=== PATIENT | female | born 1960 | race Caucasian/White ===

== ENCOUNTER → 2021-03-24 | Outpatient (CLI) | payer OTHER ==
[2021-03-24 15:27] LABS: Appearance,Urine Clear (Clear); Bilirubin,Urine Negative (Negative); Blood,Urine Negative (Negative); Color,Urine Light Yellow; Glucose,Urine (UA) Negative (Negative); Ketones,Urine Negative (Negative); Leukocyte Esterase,Urine Negative (Negative); Nitrite,Urine Negative (Negative); Protein,Urine Negative (Negative); Specific Gravity,Urine 1.005 (1.001-1.035); Urobilinogen,Urine <2.0 mg/dL (<2.0)
[2021-03-24 15:34] LABS: ALT 20 U/L (4-34); AST 28 U/L (14-36); African American GFR (CKD) >90 (>60 ml/min/1.73 sqM); Albumin 4.9 g/dL (3.5-5.0); Alkaline Phosphatase 124 U/L (38-126); Anion Gap 10 mmol/L; Blood Urea Nitrogen 13 mg/dL (7-17); Carbon Dioxide 25 mmol/L (22-30); Chloride 105 mmol/L (98-107); Glucose 83 mg/dL (74-99); INR 0.9 (<1.2); Non-African American GFR(CKD) >90 (>60 ml/min/1.73 sqM); Potassium 4.1 mmol/L (3.5-5.1); Prothrombin Time 9.9 sec (9.0-12.0); Sodium 140 mmol/L (137-145); Total Bilirubin 0.6 mg/dL (0.2-1.3)
[2021-03-24 15:36] LABS: HCT 39.7 % (34.0-46.0); MCH 29.9 pg (25.0-35.0); MCHC 32.8 g/dL (31.0-37.0); MCV 91.2 fL (80.0-100.0); Mean Platelet Volume 7.7; Platelet Count 258 k/uL (150-450); RBC 4.35 m/uL (3.80-5.40); RDW 12.9 % (11.5-15.5); WBC 7.5 k/uL (3.8-10.6)
== END | disposition home or self-care (01) ==
LOC: LABPAT 13:44
PROVIDERS: ATTEND Orthopaedic Surgery
DX: Z01.812 Encounter for preprocedural laboratory examination (principal)
CPT/HCPCS: 36415; 80053; 81003; 85027; 85610; 85730; 87070

== ENCOUNTER 2021-03-29 09:48 | Day surgery (SDC) | payer OTHER ==
[2021-03-24 13:47] VITALS: BMI 44.2
[~2021-03-29 09:48] MED LIST: ACETAMINOPHEN TAB 500 MG TAB PO PRN; DEXAMETHASONE SOD PHOSPHATE 4 MG/ML 1 ML VIAL IV ONE; GABAPENTIN 300 MG CAP PO PRN; MELOXICAM 7.5 MG TAB PO PRN; ONDANSETRON 4 MG/2 ML VIAL IVP ONE; ROPIVACAINE/EPI/CLONIDINE/KET 50 ML SYRINGE MISCELLANE PRN; TRANEXAMIC ACID 1,000 MG in SODIUM CHLORIDE 0.9% 100 ML IVPB PRN
[2021-03-29] MEDS: LACTATED RINGERS 1,000 ML IV SCH ×2 (10:30→16:58)
[2021-03-29] MEDS ORDERED: NALOXONE 0.4 MG/ML 1 ML VIAL IV PRN (11:01)
[2021-03-29] MEDS ORDERED: HYDROmorphone 1 MG/ML 1 ML SYRINGE IVP PRN (11:01)
[2021-03-29] MEDS ORDERED: HYDROmorphone 0.5 MG/0.5 ML SYRINGE IVP PRN (11:01)
[2021-03-29] MEDS ORDERED: MAGNESIUM HYDROXIDE 2,400 MG/10 ML CUP PO PRN (11:01)
[2021-03-29] MEDS ORDERED: diazePAM 5 MG TAB PO PRN (11:01)
[2021-03-29] MEDS ORDERED: hydrOXYzine pamoate 25 MG CAP PO PRN (11:01)
[2021-03-29] MEDS ORDERED: ONDANSETRON 4 MG/2 ML VIAL IVP PRN (11:01)
[2021-03-29] MEDS ORDERED: HYDROmorphone 0.2 MG/1 ML SYRINGE IVP PRN (11:01)
[2021-03-29] MEDS ORDERED: HYDROcodone/APAP 7.5-325MG 1 EACH TAB PO PRN (11:03)
[2021-03-29] MEDS ORDERED: MIDAZOLAM 2 MG/2 ML VIAL ONE (11:04)
[2021-03-29] MEDS ORDERED: ROCURONIUM 10 MG/ML (5 ML VIAL) IV ONE (11:04)
[2021-03-29] MEDS ORDERED: PHENYLEPHRINE-0.9% NACL SYG 1,000 MCG/10 ML SYRINGE ONE (11:04)
[2021-03-29] MEDS ORDERED: HYDROmorphone (PF) 1 MG/ML ONE (11:04)
[2021-03-29] MEDS ORDERED: HEPARIN SODIUM,PORCINE 10,000 UNIT/ML 1 ML VIAL ONE (11:04)
[2021-03-29] MEDS ORDERED: fentaNYL (PF) 50 MCG/ML 2 ML AMP ONE (11:04)
[2021-03-29] MEDS ORDERED: LIDOCAINE 1% INJ 10MG/ML (20 ML MDV) ONE (11:04)
[2021-03-29] MEDS ORDERED: SODIUM CHLORIDE 0.9% 100 ML BAG ONE (11:04)
[2021-03-29] MEDS ORDERED: SUCCINYLCHOLINE CHLORIDE 100 MG/5 ML SYR IV ONE (11:04)
[2021-03-29] MEDS ORDERED: TRANEXAMIC ACID 1,000 MG/10 ML VIAL ONE (11:04)
[2021-03-29] MEDS ORDERED: SODIUM CHLORIDE 0.9% IRRIG 1,000 ML BTL IRRIGATION ONE (11:04)
[2021-03-29] MEDS ORDERED: NEOSTIGMINE 1 MG/ML 10 ML VIAL ONE (11:04)
[2021-03-29] MEDS ORDERED: PROPOFOL 10 MG/ML 20 ML VIAL IV ONE (11:04)
[2021-03-29] MEDS ORDERED: GLYCOPYRROLATE 0.2 MG/ML 2 ML VIAL ONE (11:04)
[2021-03-29] MEDS ORDERED: ceFAZolin 1,000 MG in SODIUM CHLORIDE 0.9% 1,000 ML IRRIGATION ONE (11:09)
--- NOTE | 2021-03-29 12:39 | P.OP ---
Date of Procedure: 03/29/21 Preoperative Diagnosis: Severe osteoarthritis left hip Postoperative Diagnosis: Severe osteoarthritis left hip Procedure(s) Performed: Left total hip arthroplasty with a direct anterior approach Implants: [employer] Polarstem standard size 3 [employer] R3, 3 hole hemispherical acetabular shell, 52 mm [employer] Reflection 6.5 mm cancellus screw, 20 mm, 25 mm [employer] R3, XLPE 20 acetabular liner [employer] Oxinium femoral head 36 m, +4 All components were press-fit. The articulation is Oxinium on polyethylene. Anesthesia: GETA Surgeon: Braulio Park Installer Soft Top #1: Cassidy Rees Estimated Blood Loss (ml): 200 (65 mL returned with Cell Saver) Pathology: other (Femoral head) Condition: stable Disposition: PACU Indications for Procedure: After failure of conservative treatment we discussed the surgical and nonsurgical treatment options at length. Patient wishes to proceed with a total hip arthroplasty with a direct anterior approach. Complications specific to this procedure were discussed at length, including but not limited to infection, leg length discrepancy, dislocation, nerve injury, and fracture. Covid-19 was also discussed at length with the patient, and they are aware of the current policies and procedures. The patient was given the option of delaying surgery, but they elect to proceed knowing these risks. Patient is aware of all these complications and informed consent was obtained Operative Findings: The operative findings are consistent with severe osteoarthritis of the left hip Description of Procedure: Patient was seen and evaluated in the preoperative area and the consent was reviewed. The operative site was marked with a skin marker. The patient was then brought to the operating room and given preoperative antibiotics intravenously. 1 g of Tranexamic acid was also given intravenously. A general anesthetic was administered by the anesthesia department. The patient was then placed on the [place] table with the bony prominences well-padded. The hip area was then prepped with a ChloraPrep solution and draped in the usual sterile fashion. A universal timeout was then performed, which confirmed the patient's name, surgical site, ALLERGIES, and procedure being performed on the consent. Next the incision site was located at 1 cm distal to the anterior superior iliac spine and 2 cm lateral. The skin and subcutaneous tissues were sharply incised. Incision was carefully dissected down to the fascia overlying the tensor fascia eliud muscle. This fascia was then incised in line with the incision. Care was taken to stay laterally in order to avoid injuring the lateral femoral cutaneous nerve. Next, using blunt finger dissection, the tensor fascia eliud muscle was dissected off its investing fascia. The muscle was then carefully retracted laterally with a cobra retractor over the lateral neck of the femur. Next, the circumflex vessels were identified and cauterized using the AquaMantis device. The anterior hip capsule was then exposed. The capsule was then opened and an inverted T fashion. Cobra retractors were then placed intracapsularly. The retractors were maintained intracapsular throughout the procedure. The proximal femur was then visualized. A small amount of traction was placed on the leg. The femoral neck was then osteotomized appropriate level above the lesser trochanter. A small wedge of bone was then removed from the remaining femoral head. Next, using a corkscrew the femoral head was removed from the acetabulum. On gross visual inspection, the femoral head had complete loss of articular cartilage and multiple periarticular osteophytes. The femoral head was then measured. Attention was then turned to the acetabulum. The acetabulum was exposed and any remaining labrum was excised. Sequential reaming of the acetabulum was performed using fluoroscopic guidance until there was a good bed of bleeding cancellus bone. When the appropriate size was reached, a trial was then placed. The position and fit of the trial was checked with fluoroscopy. The trial was then removed. Then, using fluoroscopic guidance, the final implant was impacted at 20 of anteversion and 40 of abduction, and fully seated in the acetabulum. 2 screws were then placed in the acetabulum. Again fluoroscopy was used to check position of the screws. Next, the liner was then impacted, with a 20 elevated liner located in the anterior superior quadrant. Component locking was confirmed. Attention was then directed to the femur. With the aid of the [place] table, the femur was externally rotated to approximately 130, extended, and adducted under the opposite leg. A side hook was then placed under the proximal femur, and the side hook elevator was used to elevate the proximal femur while releasing the capsule. Retractors were then placed. A capsular release was performed, as well as a release of the conjoined tendon, which afforded excellent visualization of the proximal femur. Next, a box osteotome was used to lateralize the proximal femur. A acid correction hand was then used to locate the femoral canal. Sequential broaching was then performed with appropriate size which afforded excellent fixation in the proximal femur. A trial was then placed with appropriate head and neck, and the hip was gently reduced with the aid of the [place] table. Fluoroscopy was then used to check position of the components, as well as to ensure equal leg lengths. The hip was then gently dislocated and the trials were then removed. Final implants were then impacted and the hip was again reduced. Final fluoroscopic x-rays confirmed that the components were in anatomic position, as well as equal leg lengths. The hip was also taken through range of motion, and found to be stable. The hip was then copiously irrigated with antibiotic solution with pulsatile lavage. The hip was then irrigated with Irrisept solution. The soft tissues were then injected with a ropivacaine solution, which consisted of 246.25 mg of ropivacaine, 0.5 mg of epinephrine, 30 mg of Toradol, 80 g of clonidine, and 48.45 mL of sterile water, for a total of 100 mL of fluid injected. A second dose of 1 g of Tranexamic acid was also given intravenously. Any blood collected by Cell Saver was then returned to the patient at this time. The fascia was then closed with 2-0 strata fix suture. The subcutaneous tissue was closed with 3-0 Vicryl. The subcuticular tissue was closed with 3-0 strata fix suture. The skin was then closed with Exofin skin glue. After the glue and dried, and Optifoam silver impregnated dressing was applied. The patient was then transferred to the recovery room in stable condition. The marketing assistant YOGI Sequeira was required due to the complexity of surgery, and the need for skilled surgical asst for positioning, draping, exposure, retraction, and closure of the wound.
[2021-03-29] MEDS: HYDROmorphone 0.5 MG/0.5 ML SYRINGE IVP PRN ×2 (13:15→14:05)
--- NOTE | 2021-03-29 14:01 | FL ---
Fluoroscopy HISTORY: Left hip replacement 26 seconds fluoroscopy time supplied to the referring clinician. 2 intraoperative C-arm images docum ent the procedure. See dictated report from orthopedic surgery.
--- NOTE | 2021-03-29 14:32 | XR ---
Limited left hip HISTORY: Status post left hip arthroplasty Single frontal view of the left hip Patient is status post left hip arthroplasty. There is anatomic alignment. Lucencies present in the s oft tissues. IMPRESSION: Orthopedic follow-up.
[2021-03-29] MEDS ORDERED: SENNOSIDES-DOCUSATE SODIUM 1 EACH TAB PO SCH (21:00)
[2021-03-29] MEDS: ASPIRIN 325 MG TAB PO SCH (21:40)
[2021-03-29] MEDS: SODIUM CHLORIDE 0.9% 1,000 ML IV SCH (21:41)
[2021-03-30] MEDS: SODIUM CHLORIDE 0.9% 1,000 ML IV SCH (02:42)
[2021-03-30] MEDS: HYDROcodone/APAP 7.5-325MG 1 EACH TAB PO PRN ×2 (05:55→12:29)
[2021-03-30 07:42] VITALS: BP 124/66; PULSE 72; RESP 18; TEMP 97.8
--- NOTE | 2021-03-30 07:53 | P.DS ---
Providers Expected date of discharge: 03/30/21 Attending physician: Braulio Park Consults: 03/29/21 11:01 Consult Physician Routine Consulting Provider: Martha Muñoz Consult Reason/Comments: medical management Do you want consulting provider notified?: Yes Primary care physician: Dave Yepez MD - Discharge Diagnosis(es) (1) Osteoarthritis of left hip Current Visit: Yes Status: Acute (2) Status post total hip replacement, left Current Visit: Yes Status: Acute Hospital Course: This is a 60-year-old female with known history of degenerative arthritis of the left hip. The patient presents for evaluation. After discussion and considerat ion patient elects to proceed with total hip arthroplasty with direct anterior approach. The patient is seen preoperatively by care physician and cleared for surgery. Patient is admitted to [facility] on 03/29/2021 for total hip arthroplasty with direct anterior approach. The procedures performed without complication or sequelae. The patient is doing well postoperatively. Labs and vital signs are stable on day of discharge. On day of discharge patient's hip incision is healing well. There is minimal erythema. There is no drainage noted at this time. There is minimal soft tiss ue swelling to the hip and thigh. Patient has full foot and ankle motion without difficulty or pain. Neurovascular status to the left lower extremity is intact. Patient is discharged to home in good condition. Please see med rec for accurate list of home medications. Patient Condition at Discharge: Good Plan - Discharge Summary Discharge Rx Participant: No New Discharge Prescriptions: New Aspirin 325 mg PO BID #60 tab HYDROcodone/APAP 7.5-325MG [[place] 7.5-325] 1 - 2 tab PO Q6H PRN #32 tab PRN Reason: Pain Sennosides [Senokot] 2 tab PO DAILY PRN #60 tablet PRN Reason: Constipation Ondansetron Odt [Zofran Odt] 1 tab PO Q8HR PRN #10 tab PRN Reason: Nausea No Action Multivitamins, Thera [Multivitamin (formulary)] 1 tab PO DAILY L.acidoph,Paracasei, B.lactis [Probiotic] 1 each PO DAILY Ibuprofen 800 mg PO Q8H PRN PRN Reason: Pain Discharge Medication List Ibuprofen 800 mg PO Q8H PRN 03/24/21 [History] L.acidoph,Paracasei, B.lactis [Probiotic] 1 each PO DAILY 03/24/21 [History] Multivitamins, Thera [Multivitamin (formulary)] 1 tab PO DAILY 03/24/21 [History] Aspirin 325 mg PO BID #60 tab 03/29/21 [Rx] HYDROcodone/APAP 7.5-325MG [[place] 7.5-325] 1 - 2 tab PO Q6H PRN #32 tab 03/29/21 [Rx] Ondansetron Odt [Zofran Odt] 1 tab PO Q8HR PRN #10 tab 03/29/21 [Rx] Sennosides [Senokot] 2 tab PO DAILY PRN #60 tablet 03/29/21 [Rx] Follow up Appointment(s)/Referral(s): Braulio Park DO [Doctor of Osteopathic Medicine] - 2 Weeks Activity/Diet/Wound Care/Special Instructions: Weightbearing as tolerated with walker. Leave dressing intact. Dressing may be removed by home care nurse or by patient in 7 days. Then change dressing twice daily until follow up. May shower with initial dressing intact and after removal. If dressing become saturated, please remove. Please take aspirin 325mg twice daily for 30 days to prevent blood clots. Recommend use of compression stockings daily until follow up to help prevent swelling and blood clots. May remove at night before sleeping. Please follow[facility]up with [facility] in 2 weeks and call with any questions or concerns, . Discharge Disposition: HOME WITH HOME HEALTH SERVICES
[2021-03-30] MEDS: ASPIRIN 325 MG TAB PO SCH (08:38)
[2021-03-30 09:35] LABS: Basophils # (A) 0.02 X 10*3/uL (0.00-0.10); Basophils % (A) 0.2 %; Eosinophils # (A) 0.01 X 10*3/uL (0.04-0.35); Eosinophils % (A) 0.1 %; HCT 32.2 % (37.2-46.3); HGB 10.6 g/dL (12.0-15.0); Lymphocytes # (A) 1.41 X 10*3/uL (0.90-5.00); MCH 29.8 pg (27.0-32.0); MCHC 32.9 g/dL (32.0-37.0); MCV 90.4 fL (80.0-97.0); Mean Platelet Volume 10.7 fL (9.5-12.2); Monocytes # (A) 0.77 X 10*3/uL (0.20-1.00); Monocytes % (A) 6.6 %; Neutrophils # (A) 9.47 X 10*3/uL (1.80-7.70); Neutrophils % (A) 80.7 %; Platelet Count 222 X 10*3/uL (140-440); RBC 3.56 X 10*6/uL (4.10-5.20); RDW 12.3 % (11.5-14.5); WBC 11.73 X 10*3/uL (4.50-10.00)
--- NOTE | 2021-03-30 12:40 | P.CONS ---
History of Present Illness - Reason for Consult Consult date: 03/29/21 Medical management - History of Present Illness This is a pleasant 60-year-old female who is evaluated postoperative day #1 for a total left hip arthroplasty with direct anterior approach performer Dr. Park. Patient has a past medical history significant for severe osteoarthritis, of the left hip, anxiety, 3. Patient was noted to have a heart murmur at her gynecology office in August from there she und erwent an echocardiogram in September which recommended a follow-up SVETLANA which was completed prior to his surgery. Patient states that the SVETLANA was essentially normal and cardiology cleared her for surgery. Patient is evaluated today sitting up in the chair after working with PT. Patient denies any chest pain, chest pressure, palpitations. She denies any cough, shortness of breath. Patient denies any nausea vomiting or diarrhea, abdominal pain. Patient reports minimal pain to the left hip which is being controlled by oral pain medication. She states that she is ready for discharge today. There were no postop labs available for review. Today her white blood cell count is 11.73, hemoglobin 10.6. COVID was nondetectable. On discharge surgical services recommending aspirin 325 mg by mouth twice a day for DVT prophylaxis. Vital signs this admission include a temperature 97.8, heart rate 72 sinus rhythm, blood pressure 124/66, 99% on room air. REVIEW OF SYSTEMS: CONSTITUTIONAL: No fever, no malaise, no fatigue. HEENT: No recent visual problems or hearing problems. Denied any sore throat. CARDIOVASCULAR: No chest pain, orthopnea, PND, no palpitations, no syncope. PULMONARY: No shortness of breath, no cough, no hemoptysis. GASTROINTESTINAL: No diarrhea, no nausea, no vomiting, no abdominal pain. NEUROLOGICAL: No headaches, no weakness, no numbness. HEMATOLOGICAL: Denies any bleeding or petechiae. GENITOURINARY: Denies any burning micturition, frequency, or urgency. MUSCULOSKELETAL/RHEUMATOLOGICAL: Denies any joint pain, swelling, reports mild 2/10 pain which is dull to the left hip. ENDOCRINE: Denies any polyuria or polydipsia. The rest of the 14-point review of systems is negative. PHYSICAL EXAMINATION: GENERAL: The patient is alert and oriented x3, not in any acute distress. Well developed, well nourished. HEENT: Pupils are round and equally reacting to light. EOMI. No scleral icterus. No conjunctival pallor. Normocephalic, atraumatic. No pharyngeal erythema. No thyromegaly. CARDIOVASCULAR: S1 and S2 present. No murmurs, rubs, or gallops. PULMONARY: Chest is clear to auscultation, no wheezing or crackles. ABDOMEN: Soft, nontender, nondistended, normoactive bowel sounds. No palpable organomegaly. MUSCULOSKELETAL: No joint swelling or deformity. EXTREMITIES: No cyanosis, clubbing, mild nonpitting ankle edema on the left NEUROLOGICAL: Gross neurological examination did not reveal any focal deficits. SKIN: No rashes. Assessment and plan Assessment Osteoarthritis of the left hip Postop day #1 total left hip arthroplasty Anxiety Heart murmur, unknown location or severity, reports are unavailable at this time -Obesity, BMI 43 DVT prophylaxis aspirin 325 twice a day GI prophylaxis Pepcid Full code Plan Patient was evaluated today by medical services who is medically cleared patient for discharge. She currently repeat lab done in 3 days to monitor hemoglobin. Patient will be discharged home with PT OT services. We are recommending patient to resume all postop medications. Patient was discharged home on Pepcid for GI prophylaxis for the next month. Follow-up with orthopedics, PCP. Thank you for this consultation and allowing us to participate in the care of this patient. Past Medical History Past Medical History: Osteoarthritis (OA) Additional Past Medical History / Comment(s): Heart murmur. Varicose veins left leg. History of Any Multi-Drug Resistant Organisms: None Reported Past Surgical History: Section Additional Past Surgical History / Comment(s): Section X3. SVETLANA. Past Anesthesia/Blood Transfusion Reactions: No Reported Reaction Past Psychological History: Anxiety Smoking Status: Never smoker Past Alcohol Use History: Occasional Past Drug Use History: None Reported - Past Family History Mother Family Medical History: Cancer Additional Family Medical History / Comment(s): Breast cancer. Medications and Allergies Home Medications Medication Instructions Recorded Confirmed Type Ibuprofen 800 mg PO Q8H PRN 03/24/21 03/24/21 History L.acidoph,Paracasei, B.lactis 1 each PO DAILY 03/24/21 03/24/21 History [Probiotic] Multivitamins, Thera [Multivitamin 1 tab PO DAILY 03/24/21 03/24/21 History (formulary)] Aspirin 325 mg PO BID #60 tab 03/29/21 Rx HYDROcodone/APAP 7.5-325MG [[place] 1 - 2 tab PO Q6H PRN #32 tab 03/29/21 Rx 7.5-325] Ondansetron Odt [Zofran Odt] 1 tab PO Q8HR PRN #10 tab 03/29/21 Rx Sennosides [Senokot] 2 tab PO DAILY PRN #60 tablet 03/29/21 Rx Allergies Allergy/AdvReac Type Severity Reaction Status Date / Time No Known Allergies Allergy Verified 03/29/21 10:24 Physical Exam Vitals: Vital Signs Temp Pulse Pulse Resp BP Pulse Ox 03/30/21 07:42 97.8 F 72 18 124/66 99 03/30/21 00:58 97.5 F L 70 15 120/67 96 03/29/21 19:11 97.4 F L 82 15 101/64 97 03/29/21 15:41 97.6 F 93 16 99/63 98 03/29/21 15:16 83 16 112/67 100 03/29/21 15:02 90 16 124/76 100 03/29/21 14:45 87 16 119/64 100 03/29/21 14:31 80 16 128/64 100 03/29/21 14:16 73 16 129/60 100 03/29/21 14:01 65 16 144/68 100 03/29/21 13:47 74 16 143/77 100 03/29/21 13:30 74 16 148/66 99 03/29/21 13:15 74 16 157/69 99 03/29/21 13:10 97 F L 80 16 149/75 99 03/29/21 10:27 98.6 F 97 16 179/80 97 Intake and Output 03/29/21 03/30/21 03/30/21 22:59 06:59 14:59 Intake Total 480 Output Total 400 Balance 80 Intake: IV 0 Oral 480 Output: Urine 400 Other: Voiding Method Toilet # Voids 1 Weight 112.2 kg Results CBC & Chem 7: 03/30/21 06:07
== END 2021-03-30 12:41 | disposition home health service (06) ==
LOC: OR 09:48 → 4SSUR 13:08 → OR 03-30 12:41
PROVIDERS: ATTEND Orthopaedic Surgery
DX: M16.12 Unilateral primary osteoarthritis, left hip (principal); F41.9 Anxiety disorder, unspecified; I83.92 Asymptomatic varicose veins of left lower extremity; R01.1 Cardiac murmur, unspecified; E66.9 Obesity, unspecified; Z68.41 Body mass index [BMI] 40.0-44.9, adult; Z20.822 Contact with and (suspected) exposure to COVID-19; Z97.3 Presence of spectacles and contact lenses; Z98.891 History of uterine scar from previous surgery; Z82.49 Family history of ischemic heart disease and other diseases of the circulatory system
CPT/HCPCS: 97161; 97535; 97165; 86891; 86900; 86901; 85025; 86850; 88300; 87635; 73501; 27130; C1776; J1100; J0690 ×3; J2405; J1170

== ENCOUNTER → 2021-06-06 | Outpatient (CLI) | payer OTHER ==
[2021-06-06 11:12] LABS: HCT 42.7 % (34.0-46.0); HGB 14.1 gm/dL (11.4-16.0); MCH 28.9 pg (25.0-35.0); MCV 87.5 fL (80.0-100.0); Mean Platelet Volume 7.4; Platelet Count 255 k/uL (150-450); RBC 4.88 m/uL (3.80-5.40); RDW 13.6 % (11.5-15.5); WBC 6.3 k/uL (3.8-10.6)
[2021-06-06 11:23] LABS: ALT 21 U/L (4-34); AST 25 U/L (14-36); African American GFR (CKD) >90 (>60 ml/min/1.73 sqM); Albumin 4.7 g/dL (3.5-5.0); Alkaline Phosphatase 117 U/L (38-126); Anion Gap 10 mmol/L; Blood Urea Nitrogen 16 mg/dL (7-17); Calcium 9.9 mg/dL (8.4-10.2); Carbon Dioxide 27 mmol/L (22-30); Chloride 104 mmol/L (98-107); Glucose 92 mg/dL (74-99); Non-African American GFR(CKD) >90 (>60 ml/min/1.73 sqM); Potassium 4.4 mmol/L (3.5-5.1); Sodium 141 mmol/L (137-145); Total Bilirubin 0.4 mg/dL (0.2-1.3); Total Protein 7.7 g/dL (6.3-8.2)
[2021-06-06 11:26] LABS: Appearance,Urine Clear (Clear); Bilirubin,Urine Negative (Negative); Blood,Urine Negative (Negative); Color,Urine Yellow; Glucose,Urine (UA) Negative (Negative); Ketones,Urine Negative (Negative); Leukocyte Esterase,Urine Negative (Negative); Nitrite,Urine Negative (Negative); PH, Urine 6.5 (5.0-8.0); Protein,Urine Negative (Negative); Specific Gravity,Urine 1.019 (1.001-1.035); Urobilinogen,Urine <2.0 mg/dL (<2.0)
[2021-06-06 11:38] LABS: INR 0.9 (<1.2); Partial Thromboplastin Time 25.1 sec (22.0-30.0); Prothrombin Time 9.9 sec (9.0-12.0)
== END | disposition home or self-care (01) ==
LOC: LABPAT 09:47
PROVIDERS: ATTEND Orthopaedic Surgery
DX: Z01.812 Encounter for preprocedural laboratory examination (principal); M17.12 Unilateral primary osteoarthritis, left knee
CPT/HCPCS: 80053; 81003; 85027; 85610; 85730; 87070